=== PATIENT | female | born 1985 | race African-American/Black ===

== ENCOUNTER 2016-12-03 21:58 | Emergency (ER) | payer MEDICAID ==
[~2016-12-03] VITALS: Ht 160 cm; Wt 76.7 kg
[~2016-12-03 21:58] MED LIST: ALBUTEROL SULF8.5 GM INH; ALBUTEROL2.5 MG/3 M INH; CIPROFLOXACIN500 M2 ORAL; IBUPROFEN800 MG ORAL; KEFLEX500 MG ORAL; NORCO 5-325 TA1 EACH ORAL; PHENAZOPYRIDIN100 MG ORAL; PRENATAL GUMMI1 EACH PO; ZITHROMAX250 MG ORAL
[2016-12-03 22:10] VITALS: BP 102/64
[2016-12-03] MEDS ORDERED: Albuterol ud Inhalation HHN ONE (22:15)
[2016-12-03] MEDS ORDERED: Ipratropium 0.02% Inh Soln 2.5ml UD HHN ONE (22:15)
--- NOTE | 2016-12-03 22:17 | Emergency Room Report ---
History of Present Illness General Chief Complaint: Asthma Source: Patient Present Illness HPI Patient present with complaints of sore throat cough and congestion Patient has a history of asthma and she does feel it flareup This usually this happens she gets sick Denies any vomiting or diarrhea Patient reports multiple sick contacts with her children Denies any chest pain denies any pleurisy Sore throat is 3/10 Allergies: Coded Allergies: PENICILLINS (Verified Allergy, Unknown, 04/18/16) Uncoded Allergies: seafood (Allergy, Mild, swelling, 07/04/13) Patient History Past Medical History: see triage record Pertinent Family History: none Last Menstrual Period: 11/29/16 Now: No : 8 Para: 4 Reviewed Nursing Documentation: PMH: Agreed, PSxH: Agreed Nursing Documentation-PMH Hx Asthma: Yes Review of Systems All Other Systems: negative except mentioned in HPI Physical Exam Vital Signs Date Time Temp Pulse Resp B/P Pulse Ox O2 Delivery O2 Flow Rate FiO2 12/03/16 22:04 97.5 74 14 118/79 99 Room Air Sp02 EP Interpretation: reviewed, normal General Appearance: well appearing Head: normocephalic, atraumatic Eyes: bilateral eye EOMI, bilateral eye PERRL ENT: hearing grossly normal, TMs + canals normal, uvula midline, pharyngeal erythema Neck: full range of motion, supple, no meningismus, no bony tend Respiratory: no rhonchi, no respiratory distress, no retraction, no accessory muscle use, wheezing - Very fine wheezing both lower lobes Cardiovascular #1: normal peripheral pulses, regular rate, rhythm, no edema, no gallop, no JVD, no murmur Gastrointestinal: normal bowel sounds, non tender, soft, no mass, no organomegaly, non-distended, no guarding, no hernia, no pulsatile mass, no rebound Genitourinary: no CVA tenderness Musculoskeletal: normal inspection Neurologic: oriented x3, responsive, special agent III-XII nml as tested, motor strength/ tone normal, sensory intact Psychiatric: mood/affect normal Skin: normal color, no rash, warm/dry, palpation normal Lymphatic: normal inspection, no adenopathy Medical Decision Making Diagnostic Impression: Primary Impression: Pharyngitis ER Course Patient has clinical findings the pharyngitis She was provided with voltage tester in the ER and did do significantly better At this time stable for close outpatient followup Last Vital Signs Date Time Temp Pulse Resp B/P Pulse Ox O2 Delivery O2 Flow Rate FiO2 12/03/16 22:04 97.5 74 14 118/79 99 Room Air Status: improved Disposition: HOME, SELF-CARE Condition: Improved Scripts Ibuprofen* (MOTRIN*) 600 Mg Tablet 600 MG ORAL Q8H Y for For Pain, #20 TAB 0 Refills Prov: ROGE SMITH D.O. 12/04/16 Albuterol Sulfate* (ALBUTEROL SULFATE MDI*) 8.5 Gm Hfa.aer.ad 2 PUFF INH Q6H, #1 EA 0 Refills Prov: ROGE SMITH D.O. 12/04/16 Azithromycin (ZITHROMAX) 500 Mg Tablet 500 MG ORAL DAILY for 7 Days, TAB Prov: ROGE SMITH D.O. 12/04/16 Additional Instructions: Patient is provided with the discharge instructions notified to follow up with primary doctor in the next 2-3 days otherwise return to the er with any worsening symptoms. Please note that this report is being documented using [employer] technology. This can lead to erroneous entry secondary to incorrect interpretation by the dictating instrument. ROGE SMITH D.O. Dec 03, 2016 22:17
[2016-12-04] MEDS ORDERED: IBUPROFEN600 MG ORAL (00:06)
[2016-12-04] MEDS ORDERED: ALBUTEROL SULF8.5 GM INH (00:06)
[2016-12-04] MEDS ORDERED: ZITHROMAX500 MG ORAL (00:06)
[2016-12-04 00:10] VITALS: BP 111/62
== END 2016-12-04 00:12 | disposition home or self-care (01) ==
LOC: EMR 22:15
DX: J02.9 Acute pharyngitis, unspecified (principal); J45.909 Unspecified asthma, uncomplicated; Z88.0 Allergy status to penicillin; Z91.013 Allergy to seafood
CPT/HCPCS: 94640; 94664; 99284

== ENCOUNTER 2017-08-27 00:16 | Emergency (ER) | payer MEDICAID ==
[~2017-08-27] VITALS: Ht 160 cm; Wt 68.9 kg
[~2017-08-27 00:16] MED LIST changes: +IBUPROFEN600 MG ORAL; +ZITHROMAX500 MG ORAL
[2017-08-27 01:00] VITALS: BP 146/71
[2017-08-27] MEDS ORDERED: ZITHROMAX250 MG ORAL (01:48)
[2017-08-27 02:00] VITALS: BP 146/71
== END 2017-08-27 02:00 | disposition home or self-care (01) ==
LOC: EMR 01:07
DX: J02.9 Acute pharyngitis, unspecified (principal); H92.01 Otalgia, right ear; R51 Headache
CPT/HCPCS: 99283

== ENCOUNTER 2018-01-24 00:50 | Emergency (ER) | payer MEDICAID ==
[~2018-01-24] VITALS: Ht 165.1 cm; Wt 77.1 kg
[2018-01-24 02:00] VITALS: BP 121/77
--- NOTE | 2018-01-24 02:39 | Emergency Room Report ---
History of Present Illness General Chief Complaint: Skin Rash/Abscess Source: Patient Present Illness HPI This patient c/o third day rash/pain mid right leg. ?insect bite? It is less red than it was yesterday. No known trauma, no fever. No other issues/ complaints. No similar history. No trauma, no fever, no shortness of breath, no chest pain, no nausea, no vomiting, no diarrhea, no abdominal pain, no syncope, LOC, dizziness, lightheadedness, headache. Allergies: Coded Allergies: PENICILLINS (Verified Allergy, Unknown, 04/18/16) Uncoded Allergies: seafood (Allergy, Mild, swelling, 07/04/13) Patient History Now: No Nursing Documentation-PMH Hx Asthma: Yes Review of Systems Constitutional: Denies: fever Eye: Denies: acuity changes Respiratory: Denies: cough, shortness of breath Cardiovascular: Denies: chest pain Gastrointestinal: Denies: nausea, vomiting Skin: Denies: rash Neurological: Denies: headache Physical Exam Vital Signs Date Time Temp Pulse Resp B/P (MAP) Pulse Ox O2 Delivery O2 Flow Rate FiO2 01/24/18 01:19 98.2 78 16 116/77 98 Room Air 98.2 General Appearance: well appearing, no apparent distress Head: normocephalic, atraumatic ENT: hearing grossly normal, normal voice Neck: full range of motion, supple Respiratory: no respiratory distress, speaking full sentences Musculoskeletal: other - RLE mid [place] there is area of erythema, minimal warmth , no swelling, mild tenderness ~2 inches circumference with central tiny puncture area slight drainage. no fluctuance, no abscess Neurologic: alert, normal gait Psychiatric: mood/affect normal Skin: no rash Medical Decision Making Diagnostic Impression: Primary Impression: Cellulitis, leg ER Course this seems like mild cellulitis that is self-resolving. i will write rx. for bactrim with instruction to patient to wait and see if continues to improve on its own. skin marked with marker. also local heat tid. Last Vital Signs Date Time Temp Pulse Resp B/P (MAP) Pulse Ox O2 Delivery O2 Flow Rate FiO2 01/24/18 01:19 98.2 78 16 116/77 98 Room Air 98.2 Status: improved Referrals: NOT CHOSEN IPA/,REFERRING (PCP) Alexander Helton M.D. Jan 24, 2018 02:39
[2018-01-24] MEDS ORDERED: BACTRIM DS TAB1 EAC1 ORAL (02:40)
[2018-01-24 02:46] VITALS: BP 116/77
== END 2018-01-24 02:46 | disposition home or self-care (01) ==
LOC: EMR 02:29
DX: L03.116 Cellulitis of left lower limb (principal); J45.909 Unspecified asthma, uncomplicated; Z88.0 Allergy status to penicillin
CPT/HCPCS: 99283

== ENCOUNTER 2018-11-30 18:14 | Emergency (ER) | payer BC, MEDICAID ==
[~2018-11-30] VITALS: Ht 160 cm; Wt 85.7 kg
[~2018-11-30 18:14] MED LIST changes: +BACTRIM DS TAB1 EAC1 ORAL
[2018-11-30 18:21] VITALS: BP 101/66
--- NOTE | 2018-11-30 18:21 | NUR ---
ED Nurse Note: Pt. AAox4. ambulatory. pt. came with c/o sore throat cough headache and fever for 3 days no fever on arrival
[2018-11-30] MEDS ORDERED: CLINDAMYCIN HC300 MG ORAL (18:50)
--- NOTE | 2018-11-30 19:04 | Emergency Room Report ---
History of Present Illness General Chief Complaint: Sore Throat Source: Patient Present Illness HPI Patient presents with son who is also being seen Patient reports having sore throat over the past 3 days She had increased pain with swallowing and today was having chills Denies any chest pain or shortness of breath denies any difficulty swallowing denies any rash denies any vomiting or diarrhea pain is 3 out of 10 worse with swallowing denies any recent travel denies any change in voice Allergies: Coded Allergies: PENICILLINS (Verified Allergy, Unknown, 04/18/16) Uncoded Allergies: seafood (Allergy, Mild, swelling, 07/04/13) Patient History Past Medical History: see triage record Pertinent Family History: none Last Menstrual Period: 11/27/18 Reviewed Nursing Documentation: PMH: Agreed; PSxH: Agreed Nursing Documentation-PMH Past Medical History: No History, Except For Hx Asthma: Yes Review of Systems All Other Systems: negative except mentioned in HPI Physical Exam Vital Signs Date Time Temp Pulse Resp B/P (MAP) Pulse Ox O2 Delivery O2 Flow Rate FiO2 11/30/18 18:21 98.8 106 18 101/66 (78) 99 Room Air Sp02 EP Interpretation: reviewed, normal General Appearance: well appearing, no apparent distress Head: normocephalic, atraumatic Eyes: bilateral eye PERRL, bilateral eye EOMI ENT: hearing grossly normal, TMs + canals normal, uvula midline, pharyngeal erythema - Bilaterally, uvula midline Neck: full range of motion, supple, no meningismus, no bony tend Respiratory: lungs clear, normal breath sounds, no rhonchi, no respiratory distress, no retraction, no accessory muscle use Cardiovascular #1: normal peripheral pulses, regular rate, rhythm, no edema, no gallop, no JVD, no murmur Gastrointestinal: normal bowel sounds, non tender, soft, no mass, no organomegaly, non-distended, no guarding, no hernia, no pulsatile mass, no rebound Genitourinary: no CVA tenderness Musculoskeletal: normal inspection Neurologic: oriented x3, responsive, application security architect III-XII nml as tested, motor strength/ tone normal, sensory intact Psychiatric: mood/affect normal Skin: normal color, no rash, warm/dry, palpation normal Lymphatic: normal inspection, no adenopathy Medical Decision Making Diagnostic Impression: Primary Impression: Pharyngitis ER Course Total differentials including but not limited to pharyngitis retropharyngeal abscess, peritonsillar abscess considered Patient does not appear septic or toxic clinical exam is consistent with pharyngitis patient has penicillin allergy and was placed on clindamycin for that and will return with any changes otherwise stable for close follow-up Last Vital Signs Date Time Temp Pulse Resp B/P (MAP) Pulse Ox O2 Delivery O2 Flow Rate FiO2 11/30/18 18:21 98.8 106 18 101/66 99 Room Air Status: unchanged Disposition: HOME, SELF-CARE Condition: Stable Scripts Clindamycin Hcl (CLINDAMYCIN HCL) 300 Mg Capsule 300 MG ORAL THREE TIMES A DAY, #30 CAP Prov: Tin Saravia DO 11/30/18 Referrals: [facility] Jose R Villarreal [facility] Patient Instructions: Pharyngitis, [id number] Additional Instructions: Patient is provided with the discharge instructions notified to follow up with primary doctor in the next 2-3 days otherwise return to the er with any worsening symptoms. Please note that this report is being documented using Yo technology. This can lead to erroneous entry secondary to incorrect interpretation by the dictating instrument. Tin Saravia DO Nov 30, 2018 19:04
[2018-11-30 19:06] VITALS: BP 112/66
--- NOTE | 2018-11-30 19:07 | NUR ---
ER DISCHARGE NOTE: Patient is cleared to be discharged per PA, pt is aox4, on room air, with stable vital signs. pt was given dc and prescription instructions, pt was able to verbalize understanding, pt id band removed. pt is able to ambulate with steady gait. pt took all belongings.
== END 2018-11-30 19:00 | disposition home or self-care (01) ==
LOC: EMR 18:46
DX: J02.9 Acute pharyngitis, unspecified (principal); Z88.0 Allergy status to penicillin; Z91.013 Allergy to seafood
CPT/HCPCS: 99282

== ENCOUNTER 2019-01-19 19:25 | Emergency (ER) | payer OTHER, MEDICAID ==
[~2019-01-19] VITALS: Ht 160 cm; Wt 88.5 kg
[~2019-01-19 19:25] MED LIST changes: +CLINDAMYCIN HC300 MG ORAL
--- NOTE | 2019-01-19 19:33 | NUR ---
ED Nurse Note: Pt walked in c/o unk rash on stefania arms and legs and back, pt reports she woke up with the itching sensation. noted reddend skin bumps on stefania arms and legs and back, no sx infection, no fever, will cont monitor.
[2019-01-19 19:38] VITALS: BP 113/76
--- NOTE | 2019-01-19 19:51 | Emergency Room Report ---
History of Present Illness General Chief Complaint: Skin Rash/Abscess Source: Patient Present Illness HPI 34-year-old female with no significant past medical history here complaining of 1 day of pruritic burning rash all over her body. Patient denies any recent exposure to allergens or intake of new food or medication. Patient has multiple insect bites all over her body with one minimally erythematous warm to touch. Denies fever and chills, anaphylaxis, shortness of breath, chest pain, palpitation, abdominal pain nausea vomiting. Denies fever or chills. Has not taken medication for symptom relief. Denies other associated symptoms. Allergies: Coded Allergies: PENICILLINS (Verified Allergy, Unknown, 04/18/16) Uncoded Allergies: seafood (Allergy, Mild, swelling, 07/04/13) Patient History Past Medical History: see triage record Past Surgical History: unable to obtain Pertinent Family History: none Now: No Immunizations: UTD Reviewed Nursing Documentation: PMH: Agreed; PSxH: Agreed Nursing Documentation-PMH Past Medical History: No History, Except For Hx Asthma: Yes Review of Systems All Other Systems: negative except mentioned in HPI Physical Exam Vital Signs Date Time Temp Pulse Resp B/P (MAP) Pulse Ox O2 Delivery O2 Flow Rate FiO2 01/19/19 19:29 98.4 16 18 113/76 (88) 97 Room Air Sp02 EP Interpretation: reviewed, normal General Appearance: normal inspection, well appearing, no apparent distress, alert Head: normocephalic, atraumatic Eyes: bilateral eye normal inspection, bilateral eye PERRL ENT: normal ENT inspection, normal pharynx, TMs + canals normal, other - No anaphylaxis Neck: normal inspection, full range of motion, supple, thyroid normal Respiratory: normal inspection, chest non-tender, lungs clear, no wheezing Cardiovascular #1: normal inspection, regular rate, rhythm, no edema, no murmur Gastrointestinal: normal inspection, soft, no mass, no bruit Rectal: deferred Genitourinary: no CVA tenderness Neurologic: normal inspection, alert, oriented x3 Psychiatric: normal inspection, judgement/insight normal, memory normal Skin: other - Multiple insect bites on arms, anterior neck, bilateral one slightly erythematous and warm to touch in the left forearm. Lymphatic: normal inspection, no adenopathy Medical Decision Making PA Attestation All my diagnosis and treatment plans were reviewed ad discussed with my supervising physician Dr. Dang Diagnostic Impression: Primary Impression: Insect bite, infected ER Course 34-year-old female with no significant past medical history here complaining of 1 day of pruritic burning rash all over her body. Patient denies any recent exposure to allergens or intake of new food or medication. Patient has multiple insect bites all over her body with one minimally erythematous warm to touch. Denies fever and chills, anaphylaxis, shortness of breath, chest pain, palpitation, abdominal pain nausea vomiting. Denies fever or chills. Has not taken medication for symptom relief. Denies other associated symptoms. Ddx considered but are not limited to : Cellulitis, superficial infection secondary to insect bite, Lyme's disease Vital signs: are WNL, pt. is afebrile H&PE are most consistent with: Superficial infection secondary to possibly mosquitoes ORDERS: Bactrim DS, prednisone, hydrocortisone cream ED INTERVENTIONS: None required at this time. DISCHARGE: At this time pt. is stable for d/c to home. Will provide printed patient care instructions, and any necessary prescriptions. Care plan and follow up instructions have been discussed with the patient prior to discharge. Take medication as directed follow-up with your primary care provider for referral to appraisal technician, return to the emergency room if worsening symptoms Last Vital Signs Date Time Temp Pulse Resp B/P (MAP) Pulse Ox O2 Delivery O2 Flow Rate FiO2 01/19/19 19:38 98.4 104 18 113/76 97 Room Air Disposition: HOME, SELF-CARE Condition: Stable Scripts Hydrocortisone 2% Cream (ANTI-ITCH 2% CREAM) Y Cr 2 GM TP TID, #28 GM Prov: Skinny Abdullahi 01/19/19 Prednisone* (PREDNISONE*) 10 Mg Tablet 10 MG ORAL BID for 5 Days, #10 TAB 0 Refills Prov: Skinny Abdullahi 01/19/19 Trimethoprim/Sulfamethoxazole 160/800* (BACTRIM DS TABLET*) 1 Each Tablet 1 TAB ORAL TWICE A DAY for 7 Days, #14 TAB 160/800 Prov: Skinny Abdullahi 01/19/19 Patient Instructions: Insect Bite, [id number] Additional Instructions: Take medication as directed follow-up with a primary care provider if difficulty breathing and swallowing return to the emergency room Skinny Abdullahi Jan 19, 2019 19:51
[2019-01-19] MEDS ORDERED: ANTI-ITCH28 G1 TP (19:54)
[2019-01-19] MEDS ORDERED: PREDNISONE10 MG ORAL (19:54)
[2019-01-19] MEDS ORDERED: BACTRIM DS TAB1 EAC1 ORAL (19:54)
[2019-01-19 20:05] VITALS: BP 115/75
--- NOTE | 2019-01-19 20:05 | NUR ---
ED Nurse Note: pt cleared to be d/c per ER provider, pt discharge and aftercare instruction provided w/ prescription, pt education done via discussion and handout, pt advised to follow up with pcp or return to ed if changes in condition, vss, ambulatory w/ steady gait, accompanied by daughter left w/ all belongings.
== END 2019-01-19 20:05 | disposition home or self-care (01) ==
LOC: EMR 19:57
DX: S40.862A Insect bite (nonvenomous) of left upper arm, initial encounter (principal); S40.861A Insect bite (nonvenomous) of right upper arm, initial encounter; S10.96XA Insect bite of unspecified part of neck, initial encounter; L08.9 Local infection of the skin and subcutaneous tissue, unspecified; W57.XXXA Bitten or stung by nonvenomous insect and other nonvenomous arthropods, initial encounter; Y92.9 Unspecified place or not applicable; Z88.0 Allergy status to penicillin; Z91.013 Allergy to seafood
CPT/HCPCS: 99282

== ENCOUNTER 2019-11-06 12:54 | Emergency (ER) | payer OTHER, MEDICAID ==
[~2019-11-06] VITALS: Ht 160 cm; Wt 83.9 kg
[~2019-11-06 12:54] MED LIST changes: +ANTI-ITCH28 G1 TP; +PREDNISONE10 MG ORAL
[2019-11-06] MEDS ORDERED: Ketorolac 30mg Inj IM ONE (13:15)
[2019-11-06] MEDS ORDERED: Methocarbamol 750mg tab ORAL ONE (13:15)
--- NOTE | 2019-11-06 13:23 | NUR ---
ED Nurse Note: Pt walked into ED for injured L ankle. Pt injured L foot when she fell while chasing son. Pt L ankle is swollen, numbness on toes. Ankle ROM 1/5. Pt is alert and orientedx4, amb w assist. Pt has scar on R knee.
--- NOTE | 2019-11-06 13:26 | NUR ---
ED Nurse Note: x ray at bedside.
--- NOTE | 2019-11-06 13:42 | Emergency Room Report ---
History of Present Illness General Chief Complaint: Lower Extremity Injury Source: Patient Present Illness HPI 34-year-old female with history of asthma currently controlled here complaining of left ankle pain after twisting it this morning. Patient rates the pain 10 out of 10 without radiation. Complains of numbness in the foot however denies any tingling, pain radiation. Has not taken medication for symptom relief. Decreased range of motion noted. Denies any chest pain, shortness of breath, cough medicine, . Allergies: Coded Allergies: PENICILLINS (Verified Allergy, Unknown, 04/18/16) Uncoded Allergies: seafood (Allergy, Mild, swelling, 07/04/13) COVID-19 Screening Contact w/high risk pt: No Recent Travel to affected area: No Experienced COVID-19 symptoms?: No Patient History Past Medical History: see triage record Past Surgical History: none Pertinent Family History: none Last Menstrual Period: 10/22/19 Now: No Immunizations: UTD Reviewed Nursing Documentation: PMH: Agreed; PSxH: Agreed Nursing Documentation-PMH Past Medical History: No History, Except For Hx Asthma: Yes Review of Systems All Other Systems: negative except mentioned in HPI Physical Exam Vital Signs Date Time Temp Pulse Resp B/P (MAP) Pulse Ox O2 Delivery O2 Flow Rate FiO2 11/06/19 12:58 98.1 103 15 134/84 (101) 99 Room Air Sp02 EP Interpretation: reviewed, normal General Appearance: no apparent distress, alert, GCS 15, non-toxic Head: normocephalic, atraumatic Eyes: bilateral eye normal inspection, bilateral eye PERRL ENT: hearing grossly normal, normal pharynx, no angioedema, normal voice Neck: full range of motion, supple/symm/no masses Respiratory: chest non-tender, lungs clear, normal breath sounds, no rhonchi, no wheezing, speaking full sentences Cardiovascular #1: regular rate, rhythm, no edema Cardiovascular #2: 2+ dorsalis pedis (R), 2+ dorsalis pedis (L) Gastrointestinal: normal bowel sounds, non tender, soft, non-distended, no guarding, no rebound Rectal: deferred Genitourinary: no CVA tenderness Musculoskeletal: back normal, swelling - Left lateral malleolus Neurologic: alert, motor strength/tone normal, oriented x3, sensory intact, responsive, speech normal Psychiatric: judgement/insight normal, memory normal, mood/affect normal, no suicidal/homicidal ideation Skin: no rash Lymphatic: no adenopathy Procedures Splinting Splinting : Consent: Verbal Location: Left ankle Pre-Made Type: AGUSTIN wrap Pre-Proc Neuro Vasc Exam: normal Post-Proc Neuro Vasc Exam: normal Patient Tolerated: Well Complications: None Progress Crutches were provided Medical Decision Making PA Attestation All my diagnosis and treatment plans were reviewed ad discussed with my supervising physician Dr. Marquez Diagnostic Impression: Primary Impression: Ankle sprain ER Course 34-year-old female with history of asthma currently controlled here complaining of left ankle pain after twisting it this morning. Patient rates the pain 10 out of 10 without radiation. Complains of numbness in the foot however denies any tingling, pain radiation. Has not taken medication for symptom relief. Decreased range of motion noted. Denies any chest pain, shortness of breath, cough medicine, . Ddx considered but are not limited to: ankle sprain, ankle strain, ankle fracture, ankle contusion Vital signs: are WNL, pt. is afebrile H&PE are most consistent with: left ankle sprain ORDERS: ankle X-ray, ibuprofen, Robaxin ED INTERVENTIONS: Toradol, Robaxin, Agustin wrap, crutches DISCHARGE: At this time pt. is stable for d/c to home. Will provide printed patient care instructions, and any necessary prescriptions. Care plan and follow up instructions have been discussed with the patient prior to discharge. Patient to medication as directed, follow primary doctor, avoid strenuous physical activity, if worsening symptoms return to the emergency room Other X-Ray Diagnostic Results Other X-Ray Diagnostic Results : X-Ray ordered: Left ankle x-ray # of Views/Limited Vs Complete: 3 View Indication: Swelling EP Interpretation: Yes PA Xray: Interpretation reviewed, by supervising MD, and agrees with findings. Interpretation: no dislocation, no fractures Impression: No acute disease Electronically Signed by: Skinny CORONADO Scribtheresa Text IMPRESSION: 1. Small ankle joint effusion. 2. Mild soft tissue swelling overlying the anterior ankle and bilateral malleoli. Last Vital Signs Date Time Temp Pulse Resp B/P (MAP) Pulse Ox O2 Delivery O2 Flow Rate FiO2 11/06/19 12:58 98.1 103 15 134/84 (101) 99 Room Air Disposition: HOME, SELF-CARE Condition: Stable Scripts Ibuprofen (Ibu) 800 Mg Tablet 800 MG PO TID, #30 TAB Prov: Skinny Abdullahi 11/06/19 Methocarbamol* (ROBAXIN-500*) 500 Mg Tablet 500 MG ORAL TID PRN for For Pain, #15 TAB 0 Refills Prov: Skinny Abdullahi 11/06/19 Patient Instructions: Ankle Sprain Additional Instructions: Take medication as directed, follow-up with primary doctor clinical implementation specialist , if worsening symptoms return to the emergency room Skinny Abdullahi November 06, 2019 13:42
[2019-11-06] MEDS ORDERED: ROBAXIN-500MG ORAL (13:43)
[2019-11-06] MEDS ORDERED: IBU800 MG PO (13:43)
--- NOTE | 2019-11-06 14:07 | Diagnostic Imaging Report ---
EXAM: XR Left Ankle Complete, 3 or More Views CLINICAL HISTORY: TRAUMA TECHNIQUE: Frontal, lateral and oblique views of the left ankle. COMPARISON: No relevant prior studies available. FINDINGS: Bones/joints: Small ankle joint effusion. No visible fracture or dislocation. Ankle mortise and talar dome appear intact. Soft tissues: Mild soft tissue swelling overlying the anterior ankle and bilateral malleoli. No radiodense foreign bodies. No soft tissue gas lucencies. IMPRESSION: 1. Small ankle joint effusion. 2. Mild soft tissue swelling overlying the anterior ankle and bilateral malleoli.
--- NOTE | 2019-11-06 14:09 | NUR ---
ER DISCHARGE NOTE: Patient is cleared to be discharged per ERMD, pt is aox4, on room air, with stable vital signs. pt was given dc and prescription instructions, pt was able to verbalize understanding, pt id band removed without complications. pt is able to ambulate with crutches. pt took all belongings.
[2019-11-06 14:10] VITALS: BP 136/80
== END 2019-11-06 14:09 | disposition home or self-care (01) ==
LOC: EMR 13:30
DX: S93.402A Sprain of unspecified ligament of left ankle, initial encounter (principal); X50.1XXA Overexertion from prolonged static or awkward postures, initial encounter; Y92.9 Unspecified place or not applicable; Z88.0 Allergy status to penicillin; Z91.013 Allergy to seafood
CPT/HCPCS: 73610; 96372; 99283; J1885

== ENCOUNTER 2020-02-25 09:55 | Emergency (ER) | payer OTHER, MEDICAID ==
[~2020-02-25] VITALS: Ht 160 cm; Wt 83.9 kg
[~2020-02-25 09:55] MED LIST changes: +IBU800 MG PO; +ROBAXIN-500MG ORAL
--- NOTE | 2020-02-25 10:18 | NUR ---
ED Nurse Note: ERMD at bedside.
[2020-02-25 10:23] VITALS: BP 131/76
[2020-02-25] MEDS ORDERED: Omnipaque-300 100ml vial INJ STA (10:23)
--- NOTE | 2020-02-25 10:23 | Emergency Room Report ---
History of Present Illness General Chief Complaint: General Complaint Source: Patient Present Illness HPI The patient complains of left-sided facial swelling and pain. She states she had a previous dental infection that was treated successfully with clindamycin. This was many weeks ago. She feels this is the same problem but worse. She has worsened pain and worsened swelling. In addition she has some blurry vision of her left eye. There is no pain when she moves her eye about. She denies fevers or chills. There is minimal headache. She denies difficulty swallowing. The patient complains about 10/10 pain in the cheek and upper gum area. She states she has a bad tooth there. Last menstruation was on January 17. She states her menstruation is irregular. She is uncertain whether she is at this time. 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 Last Menstrual Period: 12/28/19 Reviewed Nursing Documentation: PMH: Agreed; PSxH: Agreed Nursing Documentation-PMH Past Medical History: No History, Except For Hx Asthma: Yes Review of Systems Constitutional: Denies: fever Eye: Reports: see HPI ENT: Reports: see HPI Respiratory: Denies: shortness of breath Cardiovascular: Denies: chest pain Gastrointestinal: Denies: nausea Genitourinary: Reports: see HPI Skin: Denies: rash Neurological: Reports: see HPI Physical Exam Vital Signs Date Time Temp Pulse Resp B/P (MAP) Pulse Ox O2 Delivery O2 Flow Rate FiO2 02/25/20 09:59 98.1 99 16 131/76 (94) 98 Room Air Sp02 EP Interpretation: reviewed, normal General Appearance: well appearing, no apparent distress, GCS 15 Head: normocephalic Eyes: bilateral eye normal inspection, bilateral eye PERRL, bilateral eye EOMI , bilateral eye visual acuity ENT: moist mucus membranes, other - Dental carry upper molar left, facial swelling left cheek Neck: supple Respiratory: lungs clear, normal breath sounds Cardiovascular #1: regular rate, rhythm Cardiovascular #2: 2+ radial (R) Gastrointestinal: normal inspection Musculoskeletal: back normal, normal range of motion, gait/station normal Neurologic: alert, motor strength/tone normal, 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 Differential includes periorbital cellulitis, orbital cellulitis, peritonsillar abscess amongst others. Disconcerting patient has abnormal visual acuity. Due to the concern for orbital cellulitis IV, labs and CT of the orbits ordered with contrast. In discussion of this plan patient reports that the visual acuity in her left eye is worse than her right. She claims at this time it is not that abnormal for her. She feels that the change is related to the swelling of her cheek. As the patient does not have pain with extraocular motion or fever CT and lab work-up canceled. Urinalysis is ordered with test. test negative. Discussed findings with patient and treatment plan. Discussed the need to follow-up with a dentist to extract the tooth. Patient improved and stable for outpatient observation and treatment. No medical emergency at this time. Laboratory Tests Test 02/25/20 10:30 Urine Color Pale yellow Urine Appearance Slightly cloudy Urine pH 6 (4.5-8.0) Urine Specific [place] 1.010 (1.005-1.035) Urine Protein Negative (NEGATIVE) Urine Glucose (UA) Negative (NEGATIVE) Urine Ketones Negative (NEGATIVE) Urine Blood 3+ (NEGATIVE) H Urine Nitrite Negative (NEGATIVE) Urine Bilirubin Negative (NEGATIVE) Urine Urobilinogen Normal MG/DL (0.0-1.0) Urine Leukocyte Esterase Negative (NEGATIVE) Urine RBC 5-10 /HPF (0 - 2) H Urine WBC 0-2 /HPF (0 - 2) Urine Squamous Epithelial Cells Many /LPF (NONE/OCC) H Urine Bacteria Few /HPF (NONE) Urine HCG, Qualitative Negative (NEGATIVE) Last Vital Signs Date Time Temp Pulse Resp B/P (MAP) Pulse Ox O2 Delivery O2 Flow Rate FiO2 02/25/20 11:13 98.0 87 18 134/76 99 Room Air Status: improved Disposition: HOME, SELF-CARE Condition: Improved Scripts Ibuprofen* (MOTRIN*) 600 Mg Tablet 600 MG ORAL Q6H PRN for FOR PAIN, #20 TAB 0 Refills Prov: Harmeet Laughlin MD 02/25/20 Hydrocodone Bit/Acetaminophen 5-325* (NORCO 5-325 TABLET*) 1 Each Tablet 1 TAB ORAL Q6H PRN for FOR PAIN, #12 TAB 0 Refills Prov: Harmeet Laughlin MD 02/25/20 Cephalexin* (KEFLEX*) 500 Mg Capsule 500 MG ORAL EVERY 6 HOURS, #28 CAP Prov: Harmeet Laughlin MD 02/25/20 Referrals: [facility] (PCP) Harmeet Laughlin MD Feb 25, 2020 10:23
[2020-02-25] MEDS ORDERED: oxyCODONE HCL/Acetaminophen 5/325mg ORAL ONE (10:30)
[2020-02-25] MEDS ORDERED: Cephalexin 500mg cap ORAL ONE (10:30)
--- NOTE | 2020-02-25 10:51 | NUR ---
ED Nurse Note: Pt ambulated to ED from home d/t tooth pain as pt verbalized she was diagnosed with tooth infection on the LT upper molar; abx completed but feels like pain is recurring and causing her cheeks to swell. Pt also complains of Lt eye blurred vision and headache. Pt is AOx4, VSS, on ra, afebrile on triage.
[2020-02-25 10:52] LABS: APPEARANCE,URINE SLIGHTLY CLOUDY; BILIRUBIN, URINE NEGATIVE (NEGATIVE); COLOR,URINE PALE YELLOW; GLUCOSE, URINE (UA) NEGATIVE (NEGATIVE); KETONES,URINE NEGATIVE (NEGATIVE); LEUKOCYTE ESTERASE ,URINE NEGATIVE (NEGATIVE); NITRITE,URINE NEGATIVE (NEGATIVE); PH,URINE 6 (4.5-8.0); PROTEIN,URINE NEGATIVE (NEGATIVE); UROBILINOGEN,URINE NORMAL MG/DL (0.0-1.0)
[2020-02-25] MEDS ORDERED: NORCO 5-325 TA1 EAC1 ORAL (11:06)
[2020-02-25] MEDS ORDERED: IBUPROFEN600 M1 ORAL (11:06)
[2020-02-25] MEDS ORDERED: CEPHALEXIN500 MG ORAL (11:06)
[2020-02-25 11:13] VITALS: BP 134/76
--- NOTE | 2020-02-25 11:13 | NUR ---
ER DISCHARGE NOTE: Patient is cleared to be discharged per ERMD, pt is aox4, on room air, with stable vital signs. pt was given dc and prescription instructions, pt was able to verbalize understanding, pt id band removed. pt is able to ambulate with steady gait. pt took all belongings.
== END 2020-02-25 11:13 | disposition home or self-care (01) ==
LOC: EMR 10:19
DX: K04.7 Periapical abscess without sinus (principal)
CPT/HCPCS: 81003; 81025; 99283

== ENCOUNTER 2020-04-16 18:07 | Emergency (ER) | payer OTHER, MEDICAID ==
[~2020-04-16] VITALS: Ht 160 cm; Wt 83.9 kg
[~2020-04-16 18:07] MED LIST changes: +CEPHALEXIN500 MG ORAL; +IBUPROFEN600 M1 ORAL; +NORCO 5-325 TA1 EAC1 ORAL
--- NOTE | 2020-04-16 18:37 | NUR ---
ED Nurse Note: Pt ambulated to ed c/o right lower abd pain with lower back pain. pt reports sleep more often and lost of taste and smell. pt lmp was 2 months ago. pt went to bathroom to get urine sample.
[2020-04-16 18:38] VITALS: BP 122/72
--- NOTE | 2020-04-16 18:38 | Emergency Room Report ---
History of Present Illness General Chief Complaint: Generalized Weakness Present Illness HPI 35-year-old female with no relevant past medical or surgical history here with generalized weakness, suprapubic abdominal discomfort, bilateral flank discomfort, and urinary frequency. Patient has had urinary tract infections in the past but says that she has never felt this week with them. She says that the symptoms have been ongoing for the past 3 days. Pain is sharp in nature and exacerbated by movement. Says that she has a poor appetite but denies any nause a, vomiting, diarrhea. No fevers, chills, chest pain, palpitation of shortness of breath, dysuria, hematuria. She is sexually active but says that she uses protection every time. Allergies: Coded Allergies: PENICILLINS (Verified Allergy, Unknown, 04/18/16) Uncoded Allergies: seafood (Allergy, Mild, swelling, 07/04/13) COVID-19 Screening Contact w/high risk pt: No Recent Travel to affected area: No Experienced COVID-19 symptoms?: No COVID-19 Testing performed MOUNTER SOUSAPHONES: No Patient History Last Menstrual Period: 01/2020 Nursing Documentation-[facility] Hx Asthma: Yes Review of Systems All Other Systems: negative except mentioned in HPI Physical Exam Vital Signs Date Time Temp Pulse Resp B/P (MAP) Pulse Ox O2 Delivery O2 Flow Rate FiO2 04/16/20 18:18 99.1 86 18 122/72 (89) 99 Room Air Sp02 EP Interpretation: reviewed, normal General Appearance: no apparent distress, alert, non-toxic Head: normocephalic, atraumatic Eyes: bilateral eye normal inspection, bilateral eye PERRL ENT: hearing grossly normal, normal pharynx, no angioedema, normal voice Neck: full range of motion, supple/symm/no masses Respiratory: chest non-tender, lungs clear, normal breath sounds, speaking full sentences Cardiovascular #1: regular rate, rhythm, no edema Cardiovascular #2: 2+ carotid (R), 2+ carotid (L), 2+ radial (R), 2+ radial (L), 2+ dorsalis pedis (R), 2+ dorsalis pedis (L) Gastrointestinal: normal bowel sounds, non tender, soft, non-distended, no guarding, no rebound, other - Very mild suprapubic tenderness on palpation. Very mild bilateral CVA tenderness on percussion Rectal: deferred Genitourinary: normal inspection, no CVA tenderness Musculoskeletal: back normal, normal range of motion, calf tenderness, gait/station normal, non-tender Neurologic: alert, motor strength/tone normal, oriented x3, sensory intact, responsive, speech normal Psychiatric: judgement/insight normal, memory normal, mood/affect normal, no suicidal/homicidal ideation Reflexes: 3+ bicep (R), 3+ bicep (L), 3+ tricep (R), 3+ tricep (L), 3+ knee (R), 3+ knee (L) Lymphatic: no adenopathy Medical Decision Making Diagnostic Impression: Primary Impression: IUP (intrauterine ), incidental Additional Impression: Subchorionic hemorrhage ER Course Laboratory Tests Test 04/16/20 18:30 White Blood Count 11.7 K/UL (4.8-10.8) H Red Blood Count 5.69 M/UL (4.20-5.40) H Hemoglobin 13.0 G/DL (12.0-16.0) Hematocrit 41.2 % (37.0-47.0) Mean Corpuscular Volume 72 FL (80-99) L Mean Corpuscular Hemoglobin 22.8 PG (27.0-31.0) L Mean Corpuscular Hemoglobin Concent 31.5 G/DL (32.0-36.0) L Red Cell Distribution Width 14.5 % (11.6-14.8) Platelet Count 255 K/UL (150-450) Mean Platelet Volume 13.1 FL (6.5-10.1) H Neutrophils (%) (Auto) 55.6 % (45.0-75.0) Lymphocytes (%) (Auto) 29.2 % (20.0-45.0) Monocytes (%) (Auto) 9.5 % (1.0-10.0) Eosinophils (%) (Auto) 3.9 % (0.0-3.0) H Basophils (%) (Auto) 1.8 % (0.0-2.0) Urine Color Pale yellow Urine Appearance Slightly cloudy Urine pH 6.5 (4.5-8.0) Urine Specific [place] 1.005 (1.005-1.035) Urine Protein Negative (NEGATIVE) Urine Glucose (UA) Negative (NEGATIVE) Urine Ketones Negative (NEGATIVE) Urine Blood 2+ (NEGATIVE) H Urine Nitrite Negative (NEGATIVE) Urine Bilirubin Negative (NEGATIVE) Urine Urobilinogen Normal MG/DL (0.0-1.0) Urine Leukocyte Esterase 1+ (NEGATIVE) H Urine RBC 2-4 /HPF (0 - 2) H Urine WBC 0-2 /HPF (0 - 2) Urine Squamous Epithelial Cells Moderate /LPF (NONE/OCC) H Urine Bacteria Few /HPF (NONE) Urine HCG, Qualitative Positive (NEGATIVE) Sodium Level 137 MMOL/L (136-145) Potassium Level 3.3 MMOL/L (3.5-5.1) L Chloride Level 102 MMOL/L (98-107) Carbon Dioxide Level 28 MMOL/L (21-32) Blood Urea Nitrogen 3 mg/dL (7-18) L Creatinine 0.9 MG/DL (0.55-1.30) Estimated Glomerular Filtration Rate > 60 mL/min (>60) Glucose Level 85 MG/DL (74-106) Calcium Level 8.8 MG/DL (8.5-10.1) Total Bilirubin 0.1 MG/DL (0.2-1.0) L Aspartate Amino Transferase (AST) 11 U/L (15-37) L Alanine Aminotransferase (ALT) 8 U/L (12-78) L Alkaline Phosphatase 60 U/L (46-116) Total Protein 7.1 G/DL (6.4-8.2) Albumin 3.2 G/DL (3.4-5.0) L Globulin 3.9 g/dL Albumin/Globulin Ratio 0.8 (1.0-2.7) L Lipase 133 U/L (73-393) Human Chorionic Gonadotropin, Quant 87023 mIU/mL (1-6) H 35-year-old G6, P5 here with lower abdominal discomfort and generalized weakness. Patient was hemodynamically stable in the emergency department. Urine hCG was positive. Patient was unaware that she was and did not know how far along the may have been. Pelvic ultrasound revealed IUP at 6 weeks 4 days gestational age with heart rate of 160 bpm. There was a noted very small subchorionic hemorrhage with a small amount of free fluid in the cul-de-sac. Patient was also noted to have some bacteriuria on urinalysis. She was given a prescription for Keflex. She does not have an INSURANCE CLAIM REPRESENTATIVE physician but was given resources to follow-up. Told to come back to the emergency department if she has any worsening abdominal pain, vaginal bleeding, vomiting, diarrhea, fevers. She expressed understanding and was discharged. Last Vital Signs Date Time Temp Pulse Resp B/P (MAP) Pulse Ox O2 Delivery O2 Flow Rate FiO2 04/16/20 18:18 99.1 86 18 122/72 (89) 99 Room Air Scripts Cephalexin* (KEFLEX*) 500 Mg Capsule 500 MG ORAL EVERY 12 HOURS, #14 CAP 0 Refills Prov: Cristian Traylor M.D. 04/16/20 Cristian Traylor M.D. Apr 16, 2020 18:38
--- NOTE | 2020-04-16 19:05 | NUR ---
HAND-OFF: Report given to ALEX Demarco.
[2020-04-16 19:10] LABS: APPEARANCE,URINE SLIGHTLY CLOUDY; BILIRUBIN, URINE NEGATIVE (NEGATIVE); COLOR,URINE PALE YELLOW; GLUCOSE, URINE (UA) NEGATIVE (NEGATIVE); KETONES,URINE NEGATIVE (NEGATIVE); LEUKOCYTE ESTERASE ,URINE 1+ (NEGATIVE); NITRITE,URINE NEGATIVE (NEGATIVE); PH,URINE 6.5 (4.5-8.0); PROTEIN,URINE NEGATIVE (NEGATIVE); UROBILINOGEN,URINE NORMAL MG/DL (0.0-1.0)
[2020-04-16 19:13] LABS: BASOPHILS % (AUTO) 1.8 % (0.0-2.0); EOSINOPHILS % (AUTO) 3.9 % (0.0-3.0); HEMATOCRIT 41.2 % (37.0-47.0); LYMPHOCYTES % (AUTO) 29.2 % (20.0-45.0); MEAN CORPUSCULAR VOLUME 72 FL (80-99); MONOCYTES % (AUTO) 9.5 % (1.0-10.0); NEUTROPHILS % (AUTO) 55.6 % (45.0-75.0); PLATELET COUNT 255 K/UL (150-450); RED BLOOD COUNT 5.69 M/UL (4.20-5.40); RED CELL DISTRIBUTION WIDTH 14.5 % (11.6-14.8); WHITE BLOOD COUNT 11.7 K/UL (4.8-10.8)
[2020-04-16 19:17] LABS: ALANINE AMINOTRANSFERASE 8 U/L (12-78); ALBUMIN 3.2 G/DL (3.4-5.0); ALBUMIN/GLOBULIN RATIO 0.8 (1.0-2.7); ALKALINE PHOSPHATASE 60 U/L (46-116); ASPARTATE AMINO TRANSFERASE 11 U/L (15-37); BILIRUBIN,TOTAL 0.1 MG/DL (0.2-1.0); BLOOD UREA NITROGEN 3 mg/dL (7-18); CALCIUM 8.8 MG/DL (8.5-10.1); CARBON DIOXIDE 28 MMOL/L (21-32); CHLORIDE 102 MMOL/L (98-107); CREATININE 0.9 MG/DL (0.55-1.30); POTASSIUM 3.3 MMOL/L (3.5-5.1); SODIUM 137 MMOL/L (136-145)
--- NOTE | 2020-04-16 20:04 | NUR ---
Note rekhareza in EDM - 04/16/20 at 2345 by BECCA ER DISCHARGE NOTE: Patient is cleared to be discharged per ERMD, pt is aox4, on room air, with stable vital signs. pt was given dc and prescription instructions, pt was able to verbalize understanding, pt id band and iv site removed without complications. pt is able to ambulate with steady gait. pt took all belongings.
--- NOTE | 2020-04-16 20:30 | NUR ---
ED Nurse Note: US tech at bedside.
[2020-04-16 20:40] VITALS: BP 117/76
--- NOTE | 2020-04-16 20:40 | NUR ---
ER DISCHARGE NOTE: Patient is cleared to be discharged per ERMD, pt is aox4, on room air, with stable vital signs. pt was given dc and prescription instructions, pt was able to verbalize understanding, pt id band and iv site removed without complications. pt is able to ambulate with steady gait. pt took all belongings.
[2020-04-16] MEDS ORDERED: CEPHALEXIN500 MG ORAL (21:53)
--- NOTE | 2020-04-16 22:08 | Diagnostic Imaging Report ---
EXAM: US First Trimester , Transabdominal CLINICAL HISTORY: PAIN TECHNIQUE: Real-time transabdominal obstetrical ultrasound of the maternal pelvis and a first trimester with image documentation. COMPARISON: None FINDINGS: Uterus: Measures 11.5 x 6.6 cm. Gestational sac identified within the endometrial cavity. Small subchorionic hemorrhage measuring 1.1 x 0.3 cm. An embryonic pole is identified. [place]-rump length measures 0.74 cm. heart rate 160 bpm. Cervix is long and closed. Placenta/amniotic fluid: Cannot be adequately evaluated due to the early gestational age. Ovaries: The right ovary measures 4.0 x 2.3 x 2.6 cm. The left ovary measures 3.1 x 1.5 x 2.1 cm. The ovaries demonstrate normal color flow. Other: Trace amount of free fluid is identified. No adnexal mass. LMP: Not reported Average ultrasound age: 6 weeks 4 days SAMANTA by ultrasound: 12/06/2020 IMPRESSION: 1. Single intrauterine with heart rate of 160 bpm. Average ultrasound age of 6 weeks 4 days. 2. Small subchorionic hemorrhage measuring 1.1 x 0.3 cm.
== END 2020-04-16 20:40 | disposition home or self-care (01) ==
LOC: EMR 18:57
DX: O26.891 Other specified pregnancy related conditions, first trimester (principal); Z3A.01 Less than 8 weeks gestation of pregnancy; R53.1 Weakness; Z88.0 Allergy status to penicillin; Z91.013 Allergy to seafood
CPT/HCPCS: 36415; 76801; 76817; 80053; 81003; 81025; 83690; 84702; 85025; 96360; 99284; J7030